=== PATIENT | male | born 1990 | race Caucasian/White ===

== ENCOUNTER 2017-03-05 19:04 | Observation (INO) | payer BC ==
[~2017-03-05] VITALS: Ht 195.6 cm; Wt 103.0 kg
[~2017-03-05 19:04] MED LIST: ALBU8.5H; ALBU8.5H INH; AZIT250T6 PO; IBUP-1547 PO; OMEP20CA10 PO; PRED20TA PO
--- OUTSIDE RECORDS SUMMARY | 2017-03-05 19:08 | XMS REPORT | Continuity of Care Document ---
Author Author [facility] Organization [facility] Address Unknown Phone Unavailable Allergies Medications Problems Procedures Results Encounters ACCT No. Visit Date/Time Discharge Status Pt. Type Provider Facility Loc./Unit Complaint [id number] 11/17/2013 18:18:00 11/17/2013 23 :59:59 CLS Outpatient
--- OUTSIDE RECORDS SUMMARY | 2017-03-05 19:08 | XMS REPORT | Continuity of Care Document ---
Author Author [facility] Organization [facility] Address Unknown Phone Unavailable Support Name Relationship Address Phone TRACEY GREENBERG APRN Caregiver [address] [place] [address] Unavailable BRADLEY HOWARD Caregiver [address] [facility] [address] [place] [address] Unavailable BRADLEY BLOUNT Next Of Kin [address] [place], [place] [id number] Insurance Providers Guarantor Inderjit Blount Address [address] [place] [address] C Email DENIED Payer Twenga Other Policy Number [id number] Subscriber's Name Bradley Blount Relationship 33 Father / Parent Group Number [id number] Chief Complaint and Reason for Visit Chief Complaint Cough,Fever,Flu,URI Reason for Visit Acute bronchitis Problems Active Problems Medical Problem Onset Date Status Plantar wart of left foot Unknown Acute Past Problems Medical Problem Onset Date Acute bronchitis Unknown Acute bronchitis Unknown Change or removal of wound packing Unknown Plantar wart of left foot Unknown Medications Current Home Medications Medication Dose Units Route Directions Days Qty Instructions Start Date Albuterol Sulfate (Proair Hfa 90 Mcg/Actuation) 8.5 Gm Hfa.aer.ad 9 07/24/16 Albuterol Sulfate (Proair Hfa 90 Mcg/Actuation) 8.5 Gm Hfa.aer.ad 2 Puff Inhalation Every 6 Hours as needed for Wheezing [address] Jarrod Wright Online Affiliate Marketing Manager [facility] [address] [phone] 03/03/17 Azithromycin 250 Mg Tablet 1 Tab Oral Daily 6 Tablet TAKE TWO TABLETS ON DAY ONE, THEN ONE TABLET DAILY UNTIL ALL TAKEN. Supervising physician Dr. Jarrod Wright Online Affiliate Marketing Manager [facility] [address] [phone] 03/03/17 Ibuprofen 800 Mg Tablet 800 Mg Oral Every 8 Hours Prn 10 Days [address] Jarrod Wright Online Affiliate Marketing Manager [facility] [address] [facility] [phone] 07/24/16 Omeprazole [address] Andrews 07/24/16 Prednisone 20 Mg Tablet 40 Mg Oral Daily 5 Days [address] Jarrod Wright Online Affiliate Marketing Manager [facility] [address] [phone] 03/03/17 Past Home Medications Medication Directions Ordered Status Albuterol 17 Gm Aerosol, 17 Gm Inhalation As Needed 10/11/08 Discontinued Social History Social History Problem Response Recorded Date/Time Onset Date Status Hx Substance Use No 10/11/2008 4:57pm Not Applicable Not Applicable Hx Alcohol Use No 10/11/2008 4:57pm Not Applicable Not Applicable Hospital Discharge Instructions No hospital discharge instructions. Plan of Care Discharge Date 03/03/17 1:27pm Disposition 01 DISCHARGED HOME, SELF-CARE Condition at Discharge Stable Instructions/Education Provided Acute Bronchitis (GEN) Forms Provided [employer] Work/School Permit Prescriptions See Medication Section Referrals BRADLEY HOWARD Address: [address] [place] [address] Functional Status No functional status results. Allergies, Adverse Reactions, Alerts Allergen Type Severity Reaction Status Last Updated No Known Drug Allergies Allergy Mild Active 03/03/17 Immunizations Query Response on File Recorded Date/Time Influenza Vaccine Hx NO 03/03/17 12:56pm Tetanus Diptheria Vaccine History NO 03/03/17 12:56pm Vital Signs Acute Vital Signs Vital Response Date/Time Temperature (Fahrenheit) 99.8 deg F (96.8 - 99.1) 03/03/2017 12:53pm Temperature (Calculated Celsius) 37.29655 degrees C (36.0 - 37.3) 03/03/2017 12:53pm Pulse Rate (adult) 78 bpm (60 - 100) 03/03/2017 12:53pm O2 Sat by Pulse Oximetry 96 % (90 - 100) 03/03/2017 12:53pm Blood Pressure 113/73 mm Hg 03/03/2017 12:53pm Height (Feet) 6 feet 03/03/2017 12:53pm Height (Inches) 5.00 inches 03/03/2017 12:53pm Weight (Kilograms) 99.600 kg 03/03/2017 12:53pm Body Mass Index (BMI) 26.0 03/03/2017 12:53pm Results No known relevant diagnostic tests, laboratory data and/or discharge summary. Procedures No known history of procedures. Encounters Encounter Location Arrival/Admit Date Discharge/Depart Date Attending Provider Departed Emergency Room [facility] 03/03/17 12:43pm 03/03/17 1: 27pm TRACEY GREENBERG APRN Recent Diagnosis
[2017-03-05] MEDS ORDERED: ACET-62 PO (19:33)
[2017-03-05] MEDS ORDERED: ALBU2.5V7 AEROSOL (19:34)
--- OUTSIDE RECORDS SUMMARY | 2017-03-05 19:49 | XMS REPORT | Continuity of Care Document ---
Author Author [facility] Organization [facility] Address Unknown Phone Unavailable Allergies Medications Problems Procedures Results Encounters ACCT No. Visit Date/Time Discharge Status Pt. Type Provider Facility Loc./Unit Complaint [id number] 11/17/2013 18:18:00 11/17/2013 23 :59:59 CLS Outpatient
--- NOTE | 2017-03-05 19:55 | ERPDOC ---
Departure Disposition Decision Date: March 05, 2017 Disposition Decision Time: 21:16 Disposition: 02 TO [facility] Impression Impression Impression: Primary Impression: Asthma exacerbation Severity: Moderate Condition: Stable Seen By: Mid-level only Referrals: BRADLEY HOWARD (Family) Problems/Meds/Labs Reviewed?: Yes Medications reviewed and manag: Yes Follow up care ordered?: Yes Mental Status: Alert HPI - Dyspnea General Chief Complaint: Dyspnea/Respdistress Stated Complaint: SEVERE ASTHMA, DIFF BREATHING Time Seen by Provider: 19:35 Source: patient, family (mother) Exam Limitations: no limitations HPI - Dyspnea Initial Comments He has had some coughing and wheezing for the last several days. Was evaluated at immediate care on 03/03/17 and was started on prednisone as well as Zithromax at that time. Has been using his nebulizer at home. He has continued to have increased wheezing throughout despite the medication. Also has had a fever up to 101 at home today. Occurred At: home Onset/Timing: Gradual Duration: other (Over the last 2 days) Severity: moderate Prior Episodes/Possible Cause: occasional episodes Associated Symptoms: cough, fever/chills (today up to 101 at home), shortness of breath, DENIES: chest pain, diaphoresis, headaches, loss of appetite, malaise , nausea/vomiting, rash, seizure, syncope, weakness Aspirin Treatment Today: unknown Hx of Similar Symptoms: Yes Allergies: Coded Allergies: No Known Drug Allergies (Verified Allergy, Mild, 03/05/17) Past History Past Medical History Respiratory: asthma Surgical History Denies Surgeries Family History Family History: Negative Social History Smoking Status: Never smoker # of Packs/Tins per Day: 1.0 # of Years: 2 Second Hand Exposure: No Substance Use Type: does not use Alcohol Intake: none Review of Systems Constitutional Constitutional: chills, fever, DENIES: dizziness, fatigue, weakness ENMT Ears: DENIES: drainage, pain Sinuses: DENIES: congestion, rhinorrhea Mouth/Throat: DENIES: painful swallowing, scratchy throat, sore throat Cardiovascular Cardiac: DENIES: chest pain, orthopnea Rhythm/Rate: DENIES: irregular beat, palpitations Pulmonary Respiratory: cough, dyspnea, other (wheezing), DENIES: sputum Integumentary Skin: DENIES: rash Neurological General: DENIES: headache, numbness, tingling, weakness Physical Exam General General Nourishment: well nourished, well developed, appears stated age, no acute distress, adult General Body Habitus: well groomed Vitals and Pain First Documented Vital Signs Date Time Temp Pulse Resp B/P Pulse Ox O2 Delivery O2 Flow Rate FiO2 03/05/17 19:16 98.8 88 24 137/84 95 Room Air Weight: Kilograms: 101.900 Height (feet): 6 Height (inches): 5.00 Triage Pain Scale: RN VS reviewed by Provider: Yes Normal Exams: Neck: Full range of motion, without adenopathy, JVD, bruits or thyromegaly CV: Regular rate and rhythm, without murmur or gallop, Pulses 2+ all extremities, capillary refill, <2 seconds all ext., no pedal edema noted Abdomen: Bowel sounds positive, soft, non-tender, non-distended, no hepatosplenomegaly, masses or bruits noted Lymphatic: No lymphadenopathy, or lymphedema noted Integumentary: No rashes, hives, or bruising noted Neurologic: Patient is alert, and oriented Psychiatric: Patient exhibits, appropriate attention, emotion and affect Respiratory (brief) Respiratory: FOUND: other (tachypneic but is speaking in complete sentences), wheezes (throughout all lobes) Differential Diagnoses Considering: Acute Respiratory Failure, Asthma Exacerbation, Pneumonia, Viral Syndrome Progress Results/Orders Orders Procedure Category Date Status Time Chest, Pa & Lateral RAD 03/05/17 Taken Albuterol/Ipratropium PHA 03/05/17 Complete (Duoneb) 20:15 Methylprednisolone PHA 03/05/17 Complete Sod Succ (Solu-Medrol 20:30 Activity As Tolerated JAMEY 03/05/17 In Process 21:13 Iv Lock (Nursing) JAMEY 03/05/17 In Process 21:13 Peak Flow Measurement RT 03/05/17 Logged 21:13 Manage Oxygen JAMEY 03/05/17 In Process Administration 21:13 Monitor Pulse Oximetry JAMEY 03/05/17 In Process 21:13 Regular Diet DIET 03/06/17 Transmitted Breakfast Albuterol Sulfate PHA 03/05/17 Logged (Proventil 2.5 Mg/3 Ml 21:15 Methylprednisolone PHA 03/06/17 Logged Sod Succ (Solu-Medrol 03:00 Rt Consult RT 03/05/17 Logged 21:13 Telemetry JAMEY 03/05/17 In Process 21:13 Oxygen, Continuous RT 03/05/17 Logged 21:13 Acetaminophen PHA 03/05/17 Logged (Tylenol Extra 21:15 Albuterol Sulfate PHA 03/05/17 Logged (Proventil 2.5 Mg/3 Ml 21:15 Omeprazole (Prilosec) PHA 03/06/17 Logged 09:00 Iv Lock (Ed Only) EDM 03/05/17 Transmitted 21:17 Place In Facility As: ADMIT 03/05/17 Transmitted Medications Current ED Medications Albuterol/ Ipratropium (Duoneb) 3 ml O ONCE AEROSOL Last administered on t 19:39; Start 03/05/17 at 20:15; Stop 03/05/17 at 20:16; Status DC Methylprednisolone Sodium Succinate (Solu-Medrol) 125 mg O ONCE IM ; Start 03/05 at 20:30; Stop 03/05/17 at 22:12; Status DC Albuterol Sulfate (Proventil 2.5 Mg/3 ml) 2.5 mg Q4H PRN AEROSOL SHORTNESS OF AIR/WHEEZING; Start 03/05/17 at 21:15; Status UNV Acetaminophen (Tylenol Extra Strength) 1,000 mg Q8H PRN PO PAIN; Start 03/05/17 at 21:15; Status UNV Albuterol Sulfate (Proventil 2.5 Mg/3 ml) 2.5 mg Q4H PRN AEROSOL SHORTNESS OF AIR/WHEEZING; Start 03/05/17 at 21:15; Status UNV Progress Progress 2003- Post nebulizer treatment lungs remain with wheezing throughout all lobes. Sats are 95% on RA. Will repeat nebulizer today. 2104- Lungs with wheezing throughout but slightly improved from initial exam. Sats are 93-95% on RA. Did talk with Inderjit about increasing his prednisone dosage at home and having him use his nebulizer on more of schedule at home. His mother is concerned as she feels that his oxygen is dropping at night and that he needs admission since he has not really responded well to outpatient treatment. Radha speak with Dr Wells and he will accept OBS admission at this time. NIKI BENSON FELLING MACHINE OPERATOR March 05, 2017 19:55
[2017-03-05] MEDS ORDERED: ALBUTEROL/IPRATROPIUM INHAL. 2.5mg-0.5mg/3ml Neb. AEROSOL ONE (20:15)
[2017-03-05] MEDS ORDERED: ACETAMINOPHEN 500 MG TABLET PO PRN (21:15)
[2017-03-05] MEDS ORDERED: ALBUTEROL INH.SOLN. 2.5mg/3ml (0.083%) Neb. AEROSOL PRN (21:15)
--- OUTSIDE RECORDS SUMMARY | 2017-03-05 21:27 | XMS REPORT | Continuity of Care Document ---
Author Author [facility] Organization [facility] Address Unknown Phone Unavailable Allergies Medications Problems Procedures Results Encounters ACCT No. Visit Date/Time Discharge Status Pt. Type Provider Facility Loc./Unit Complaint [id number] 11/17/2013 18:18:00 11/17/2013 23 :59:59 CLS Outpatient
--- NOTE | 2017-03-05 21:30 | HPPDOC ---
MELBA GALLEGOS MD 03/05/17 2121: HPI - Adult Date DATE: 03/05/17 TIME: 21:18 General Chief Complaint: soa wheezing History of Present Illness Pleasant 27-year-old white male who's been ill for starting Saturday with cough and wheezing. He went to urgent care Saturday and received a prescription for prednisone 40 mg daily and Z-Felipe that he has been taking. Despite this he worsens and presents to the emergency room this evening for therapy. He received DuoNeb treatment and Solu-Medrol 125 mg. He is feeling better but is still quite wheezy. he denies any nausea vomiting abdominal pain melena or hematochezia. He had previously been smoking, he stopped about 5 days prior. He denies any history of being intubated. He does have albuterol that he uses home but does not use any inhalers etc. Past Medical History Past Medical History Asthma Surgical History Patient's Surgical History: Appy Current Medications Home Meds Active Scripts Prednisone (Prednisone) 20 Mg Tablet, 40 MG PO DAILY for 5 Days, #[address] Jarrod Wright Packaging Assembler [facility] [address] [phone] Prov:TRACEY GREENBERG APRN 03/03/17 Albuterol Sulfate (Proair HFA 90 mcg/actuation) 8.5 Gm Hfa.aer.ad, 2 PUFF INH Q6H Y for WHEEZING, #[address] Jarrod Wright Packaging Assembler [facility] [address] [phone] Prov:TRACEY GREENBERG APRN 03/03/17 Azithromycin (Azithromycin) 250 Mg Tablet, 1 TAB PO DAILY, #6 TAB TAKE TWO TABLETS ON DAY ONE, THEN ONE TABLET DAILY UNTIL ALL TAKEN. Supervising physician Dr. Jarrdo Wright Packaging Assembler [facility] [address] [phone] Prov:TRACEY GREENBERG APRN 03/03/17 Reported Medications Albuterol Sulfate (Albuterol Sulfate) 2.5 Mg/3 Ml Vial.neb, 2.5 MG AEROSOL Q4H Y for SHORTNESS OF AIR/WHEEZING 03/05/17 Acetaminophen (Acetaminophen) 500 Mg Tablet, 1000 MG PO Q8H Y for PAIN Do not exceed 3,200 mg of acetaminophen in a 24 hours period. 03/05/17 Omeprazole (Omeprazole) 20 Mg Capsule.dr, 20 MG PO DAILY 07/24/16 Allergies: Coded Allergies: No Known Drug Allergies (Verified Allergy, Mild, 03/05/17) Family History Family History: Mom has asthma Social History Smoking Status: Current every day smoker (although his last was 5 days ago, hopefully is quitting) # of Packs/Tins per Day: 1.0 # of Years: 2 Second Hand Exposure: No Substance Use Type: does not use Alcohol Intake: none Marital Status: Single Current Occupational Status: employed Advance Directives: Yes Full Code Review of Systems All Other Systems All Other Systems: Reviewed (remainder of 10-point ROS Neg.) Physical Exam General General Nourishment: well nourished, well developed Vital Signs Vital Signs Date Time Temp Pulse Resp B/P Pulse Ox O2 Delivery O2 Flow Rate FiO2 03/05/17 20:43 20 03/05/17 19:16 98.8 88 137/84 95 Room Air Height (Feet): 6 Height (Inches): 5.00 Eyes Brief: FOUND: EOMI, PERRL Respiratory Brief: FOUND: equal bilaterally, wheezes Cardiovascular (brief) Cardiac Brief: FOUND: regular rate, regular rhythm, NOT FOUND: pedal edema Abdomen (brief) Abdominal Brief: FOUND: BS normo active x4, soft, NOT FOUND: tender Integumentary (brief) Integumentary Brief: FOUND: dry, pink, warm Neurologic (brief) Neurological Brief: FOUND: cranial 2-12 intact, motor, sensory Neurologic RN Documented GCS Eye Opening: Verbal: Motor: Total: Psychiatric (brief) FOUND: alert, normal affect, oriented Radiology cxr no infiltrates Assessment & Plan Problems: (1) Asthma exacerbation Status: Acute Assessment & Plan: fortunately not once daily. However is quite wheezy and his second trip to the healthcare facility, I think is reasonable for observation overnight to make sure that the therapies improve his situation and if he stabilizes we'll discharge home tomorrow with continued prednisone burst and taper. (2) Tobacco dependence syndrome Code Status Hospital Course Summary Disclaimer The hospital course summary below is not to be considered part of the above Progress Note. LAW YEAGER MD 03/06/17 1338: Past Medical History Current Medications Home Meds Active Scripts Prednisone (Prednisone) 20 Mg Tablet, 40 MG PO DAILY for 5 Days, #[address] Jarrod Wright Packaging Assembler [facility] [address] [facility] [phone] Prov:TRACEY GREENBERG ROSA 03/03/17 Albuterol Sulfate (Proair HFA 90 mcg/actuation) 8.5 Gm Hfa.aer.ad, 2 PUFF INH Q6H Y for WHEEZING, #[address] Jarrod Wright Packaging Assembler [facility] [address] [facility] [phone] Prov:DIONICIOTRACEY Gilmore RECOVERY COLLECTOR 03/03/17 Azithromycin (Azithromycin) 250 Mg Tablet, 1 TAB PO DAILY, #6 TAB TAKE TWO TABLETS ON DAY ONE, THEN ONE TABLET DAILY UNTIL ALL TAKEN. Supervising physician Dr. Jarrod Wright Packaging Assembler [facility] [address] [place] [phone] Prov:DIONICIOTRACEY Gilmore RECOVERY COLLECTOR 03/03/17 Reported Medications Albuterol Sulfate (Albuterol Sulfate) 2.5 Mg/3 Ml Vial.neb, 2.5 MG AEROSOL Q4H Y for SHORTNESS OF AIR/WHEEZING 03/05/17 Acetaminophen (Acetaminophen) 500 Mg Tablet, 1000 MG PO Q8H Y for PAIN Do not exceed 3,200 mg of acetaminophen in a 24 hours period. 03/05/17 Omeprazole (Omeprazole) 20 Mg Capsule.dr, 20 MG PO DAILY 07/24/16 Allergies: Coded Allergies: No Known Drug Allergies (Verified Allergy, Mild, 03/05/17) Assessment & Plan Assessment Dr. Wells's note reviewed. Inderjit interviewed and examined. CC: Dyspnea HPI: Inderjit's 27-year-old male with a history of asthma and recent exacerbation. He describes onset of symptoms partially 5 days prior to admission with coughing, wheezing, and sinus pressure. He was seen at urgent care over the weekend (03/03) where he was started on azithromycin and prednisone. Symptoms have persisted and worsened progressively prompting ER evaluation last night. He is felt feverish and describes temperature 101 yesterday morning with increasing sinus pressure and recent sore throat although pharyngeal symptoms had improved after initiating azithromycin. Has persistent ear pressure. Cough has been productive of white and yellow sputum. He denies having chest pain, diaphoresis, pleuritic pain, or any GI symptoms. Diffuse generalized wheezing was described in the emergency room with tachypnea. IV Solu-Medrol was initiated and he was hospitalized for further stabilization. PH/SH/FH: agree with that recorded above noted but patient has had no cigarettes for 5 days and indicates intent to stop smoking. ROS: 10 point review negative outside of acute symptoms noted in the history of present illness. EXAM: General-NAD, alert, cooperative HEENT-PERRL, EOMI without nystagmus, conjugate gaze, facial structures symmetric , oropharynx clear, neck supple and without adenopathy Lungs-respirations nonlabored, good airflow, minor late expiratory wheezing noted in the posterior lung tai. Peak flow 635 prior to treatment, 800 posttreatment Cardiac-regular rhythm, S1-S2 Abd-soft, nontender, without palpable mass, bowel sounds present Ext-without edema Skin-without rash or evidence of wounds Neuro-cranial nerves III through XII intact, motor tone and power normal, no tremor present, sensation intact to light touch 4 extremities Psych-euthymic Chest x-ray reviewed by myself demonstrating no acute cardiopulmonary disease, additional films obtained this morning due to small linear density under right fourth rib which is not present on oblique views and felt to represent summation artifact. Minor leukocytosis consistent with steroids, blood sugar modestly elevated consistent with steroid effect. Respiratory viral panel positive for rhinovirus. A/P: 1. Asthma exacerbation 2. Rhinovirus URI 3. Steroid-induced hyperglycemia 4. Leukocytosis 5. History of tobacco use 6. Hypernatremia Peak flows are excellent today after IV steroids overnight and patient reports significant clinical improvement. Stable to convert to oral prednisone at 40 mg daily. RT to instruct use of spacer with pro-air as patient has been using the metered- dose inhaler without a spacer. Additionally will provide prescription for unit dose albuterol for home nebulizer. Stable for discharge at this time. Will remain on prednisone for an additional 5 days and complete previously prescribed course of azithromycin as a mucolytic. Peak flow meter provided to permit self-monitoring of air flow at home. Patient to follow-up with his primary care physician within one week. Will need to have blood sugar reassessed after completing steroids to exclude underlying glucose disorder. Plan/Intensity of Service X-rays reviewed-original chest x-ray and supplemental views, laboratory data reviewed, ER records reviewed, discussed with nursing and respiratory therapy. MELBA GALLEGOS MD March 05, 2017 21:21 LAW YEAGER MD March 06, 2017 13:38
--- NOTE | 2017-03-05 22:20 | NUR ---
ARRIVAL TIME 22:17: PT ARRIVED BY WHEEL CHAIR BROUGHT BY COLLIN COTE AND ACCOMPANIED BY HIS MOTHER. VSS. AUDIBLE WHEEZING.
[2017-03-05 22:22] VITALS: BP 142/78; PULSE 80; RESP 16; TEMP 96.9; O2SAT 94
[2017-03-05 22:27] VITALS: Ht 195.6 cm; Wt 103.0 kg
[2017-03-06] VITALS: BP 105/57; PULSE 73; RESP 16; TEMP 96.8; O2SAT 95
[2017-03-06 04:10] VITALS: PULSE 76; PULSE 78; RESP 16; RESP 18; TEMP 96.8; O2SAT 94; O2SAT 95
[2017-03-06] MEDS: ALBUTEROL INH.SOLN. 2.5mg/3ml (0.083%) Neb. AEROSOL PRN ×3 (04:25→11:20)
--- NOTE | 2017-03-06 05:43 | NUR ---
SHIFT SUMMARY: PT IS A&OX3, FRIENDLY AND COOPERATIVE. PT'S MOTHER STAYED IN THE ROOM FOR A FEW HOURS UPON ARRIVAL FROM ED, THEN LEFT. PT NO LONGER HAS AUDIBLE WHEEZING AND STATES THAT HE IS FEELING AND BREATHING MUCH BETTER. PT IS UP AT TEO, IV LOCKED, DENIES CHEST PAIN OR SOA, ON ROOM AIR, CALL LIGHT WITHIN REACH.
[2017-03-06] MEDS ORDERED: OMEPRAZOLE 20 MG CAPSULE PO SCH (06:30)
[2017-03-06 07:34] VITALS: BP 132/79; PULSE 73; RESP 16; TEMP 95.9; O2SAT 94
[2017-03-06 07:44] VITALS: O2SAT 93
--- NOTE | 2017-03-06 08:24 | DI ---
INDICATION: ITS.REASON: cough, wheezing PROCEDURE: CHEST 2-VIEWS UPRIGHT (PA \T\ LAT) Encounter: Initial COMPARISON: 10/08/2009 FINDINGS: The lungs are fairly clear without evidence of focal abnormal airspace opacity. There is no pleural effusion or pneumothorax. Very subtle curvilinear densities in the right mid lung, new since prior study. The heart size, mediastinal contours and pulmonary vascularity are within normal limits. There is no significant skeletal abnormality. IMPRESSION: 1. No acute cardiopulmonary disease. 2. New developing curvilinear 2.6 x 0.5 cm density right midlung, underlying the upper margin of the right anterior fourth rib. Recommend repeat views with slight left and right obliquity. .
--- NOTE | 2017-03-06 09:01 | NUR ---
DM screen False positive. Pt does not have dx of diabetes.
[2017-03-06 09:35] LABS: HCT - HEMATOCRIT 49.8 % (41-53); HGB - HEMOGLOBIN 16.4 GM/DL (13.5-17.5); MEAN CORPUSCULAR HGB CONC(MCHC 32.9 GM/DL (31-37); MEAN PLATELET VOLUME 9.3 UM3 (9.4-12.4); RED BLOOD COUNT 5.66 M/MM3 (4.50-5.90); WBC - WHITE BLOOD COUNT 12.5 T/MM3 (4.5-11.0)
[2017-03-06 09:47] LABS: ANION GAP 23 MEQ/L (5-15); BUN/CREATININE RATIO 16 RATIO (6-26); CALCIUM 10.2 MG/DL (8.4-10.2); CHLORIDE 104 MEQ/L (98-107); CO2 - CARBON DIOXIDE 20 MEQ/L (22-30); CREATININE 0.8 MG/DL (0.8-1.5); GLOMERULAR FILTRATION RATE 118; GLUCOSE 197 MG/DL (75-110); POTASSIUM 3.9 MEQ/L (3.6-5); SODIUM 147 MEQ/L (134-144)
[2017-03-06 10:20] LABS: BAND NEUTROPHILS # 0.1 T/MM3; LYMPHOCYTES # (MANUAL) 0.4 T/MM3 (1-4.8); TOTAL CELLS COUNTED 100 %
--- NOTE | 2017-03-06 11:02 | NUR ---
CM THIS WORKER SPOKE WITH PT. INTRODUCED SELF, EXPLAINED ROLE, PROVIDED CONTACT INFO. PT STATED HE LIVES IN [place] WITH HIS PARENTS, AND HIS DC PLAN IS TO RETURN HOME. PT STATED HIS MOM WILL PICK HIM UP WHEN HE IS RELEASED. PT SAID HE HAS NO QUESTIONS/NEEDS REGARDING DC. HE SAID HE HAS A NEBULIZER AT HOME, AND HE WILL HAVE NO PROBLEMS FILLING PRESCRIPTIONS. THIS WORKER ENCOURAGED HIM TO CALL IF QUESTIONS/NEEDS ARISE. DC PLAN: RETURN HOME WITH PARENTS. Addendum: 03/06/17 at 1104 by CATRACHITA MCKNIGHT Amended: Links added.
--- NOTE | 2017-03-06 11:04 | NUR ---
CM CARMELO IS 2. Addendum: 03/06/17 at 1104 by CATRACHITA SAMANIEGO SW Amended: Links added.
--- NOTE | 2017-03-06 11:09 | DI ---
INDICATION: ITS.REASON: ashma, abnormal prior chest film last night showing curvilinear density in right midlung. PROCEDURE: CHEST with mild rotation to left and right Encounter: Initial COMPARISON: Earlier chest from 03/05/2017 at 2006 hours FINDINGS: Repeat chest films were obtained with slight right and left rotation/obliquity. The curvilinear density seen initially on last night film now dissipates is not visualized, suggesting simply summation artifact. No other changes noted. IMPRESSION: No persistent density identified overlying the right chest on oblique views indicating only summation artifact. .
[2017-03-06 11:10] VITALS: O2SAT 97
[2017-03-06] MEDS ORDERED: INHALER ASSIST DEVICE (Optichamber) MC ONE (12:45)
[2017-03-06] MEDS ORDERED: PredniSONE 20 MG TABLET PO SCH (13:45)
[2017-03-06] MEDS ORDERED: AZITHROMYCIN 250 MG TABLET PO SCH (13:45)
[2017-03-06] MEDS ORDERED: ALBU2.5V7 AEROSOL (13:46)
[2017-03-06] MEDS ORDERED: PRED20TA PO (13:46)
--- NOTE | 2017-03-06 14:26 | NUR ---
DISMISSAL PT ALERT AND ORIENTED. DISCHARGE INSTRUCTIONS WERE EXPLAIN TO PT AND MOTHER. NEW, CONTINUE MEDICATIONS WERE DISCUSSED WITH PT AND MOTHER. X2 PRESCRIPTION CALLED IN TO [facility]. FOLLOW APPOINTMENTS WERE EXPLAINED TO PT. DISCHARGE INSTRUCTIONS WERE SENT WITH PT TO HOME. PT LEFT THE UNIT AMBULATING WITH HIS MOM AND ONE STAFF MEMBER.
== END 2017-03-06 14:40 | disposition home or self-care (01) ==
LOC: ED 19:04 → EDHOLD 21:19 → MED 22:17
PROVIDERS: ADMIT Pediatrics; ATTEND Internal Medicine
DX: J45.901 Unspecified asthma with (acute) exacerbation (principal); J06.9 Acute upper respiratory infection, unspecified; B97.89 Other viral agents as the cause of diseases classified elsewhere; T38.0X5A Adverse effect of glucocorticoids and synthetic analogues, initial encounter; R73.9 Hyperglycemia, unspecified; D72.829 Elevated white blood cell count, unspecified; F17.210 Nicotine dependence, cigarettes, uncomplicated; E87.0 Hyperosmolality and hypernatremia; Z79.899 Other long term (current) drug therapy
CPT/HCPCS: 36415; 71020; 71022; 80048; 85025; 87486; 87581; 87633; 87798; 94010; 94640; 96374; 96376; 99218; 99284; 99406; J2930; J7512; J7611; Q0144; 36000